=== PATIENT | female | born 1995 | race Caucasian/White ===

== ENCOUNTER 2018-06-26 15:16 | Emergency (ER) | payer SELFPAY | END 2018-06-26 16:56 | disposition home or self-care (01) | LOC: ERS 15:16 | DX: J02.9 Acute pharyngitis, unspecified (principal); E66.9 Obesity, unspecified; J45.909 Unspecified asthma, uncomplicated; F17.210 Nicotine dependence, cigarettes, uncomplicated | CPT/HCPCS: 87081; 87430; 99283 ==

== ENCOUNTER 2019-05-22 10:06 | Emergency (ER) | payer SELFPAY ==
--- NOTE | 2019-05-22 10:41 | RAD ---
EXAM: Chest 2 views: HISTORY: Cough COMPARISON: 04/20/2016 FINDINGS: There is a normal-sized cardiomediastinal silhouette. There is no evidence of consolidation, mass, or pleural effusion. The bones are unremarkable. IMPRESSION: No evidence of acute cardiopulmonary disease
[2019-05-22] MEDS ORDERED: Dexamethasone 10 MG/ML VIAL ONE (12:04)
== END 2019-05-22 12:20 | disposition home or self-care (01) ==
LOC: ERS 10:06
DX: J20.9 Acute bronchitis, unspecified (principal); J45.909 Unspecified asthma, uncomplicated; I10 Essential (primary) hypertension; E66.9 Obesity, unspecified; F17.210 Nicotine dependence, cigarettes, uncomplicated
CPT/HCPCS: 71046; 87804; 94644; 96372; J1100; J7620

== ENCOUNTER 2020-03-03 07:09 | Emergency (ER) | payer SELFPAY ==
--- NOTE | 2020-03-03 08:04 | RAD ---
Radiograph right fifth toe 3 views: 03/03/2020 7:33 AM HISTORY: 24-year-old female status post acute blunt trauma to the pinky toe FINDINGS: Transversely oriented acute fracture at proximal metaphysis of fifth proximal phalanx, with mild dors al and mild lateral angulation of distal fragment. Mild displacement. No dislocation. IMPRESSION: Acute, traumatic, mildly displaced fracture at base of proximal phalanx of right fifth toe.
== END 2020-03-03 08:02 | disposition home or self-care (01) ==
LOC: ERS 07:09
DX: S92.511A Displaced fracture of proximal phalanx of right lesser toe(s), initial encounter for closed fracture (principal); W23.0XXA Caught, crushed, jammed, or pinched between moving objects, initial encounter

== ENCOUNTER 2020-10-01 09:30 | Emergency (ER) | payer SELFPAY | END 2020-10-01 10:17 | disposition home or self-care (01) | LOC: ERS 09:30 | DX: R05 Cough (principal); R07.0 Pain in throat; Z20.822 Contact with and (suspected) exposure to COVID-19; K76.0 Fatty (change of) liver, not elsewhere classified; E66.9 Obesity, unspecified; E28.2 Polycystic ovarian syndrome; J45.909 Unspecified asthma, uncomplicated; F17.290 Nicotine dependence, other tobacco product, uncomplicated | CPT/HCPCS: 99281 ==

== ENCOUNTER 2021-03-09 09:40 | Emergency (ER) | payer OTHER | END 2021-03-09 11:24 | disposition home or self-care (01) | LOC: ERS 09:40 | DX: R19.7 Diarrhea, unspecified (principal); E66.9 Obesity, unspecified; E28.2 Polycystic ovarian syndrome; J45.909 Unspecified asthma, uncomplicated; F17.290 Nicotine dependence, other tobacco product, uncomplicated | CPT/HCPCS: 99283 ==

== ENCOUNTER 2021-04-22 14:47 | Emergency (ER) | payer OTHER, SELFPAY | END 2021-04-22 17:05 | disposition home or self-care (01) | LOC: ERS 14:47 | DX: J34.0 Abscess, furuncle and carbuncle of nose (principal); J45.909 Unspecified asthma, uncomplicated; F17.290 Nicotine dependence, other tobacco product, uncomplicated | CPT/HCPCS: 99283 ==

== ENCOUNTER 2021-09-01 09:25 | Emergency (ER) | payer SELFPAY ==
[2021-09-01 10:50] LABS: Bilirubin Negative (Negative); Blood, Urine Negative (Negative); Clarity Clear (Clear); Glucose, Urine (Dipstick) Normal (Negative); Ketone, Urine Negative (Negative); Leukocyte Negative Leu/uL (Negative); Nitrite Negative (Negative); Protein, Urine (Dipstick) Negative (Neg-Trace); Specific Gravity, Urine 1.017 (1.002-1.036); Urobilinogen Normal mg/dL (Less than 2); pH, Urine 6.5 (5.0-9.0)
[2021-09-01 10:56] LABS: Pregnancy Test - Urine (BHCG) Negative (Negative); Pregu Control Background? CLEAR/WHITE (CLR/WHITE); Pregu Control Bar Appear? YES (CONTROL BAR); Specific Gravity 1.017 (1.002-1.036)
[2021-09-01 21:51] LABS: Chlamydia by PCR Not Detected (NotDetected); GC by PCR Not Detected (NotDetected)
== END 2021-09-01 12:34 | disposition home or self-care (01) ==
LOC: ERS 09:25
DX: N76.5 Ulceration of vagina (principal); K64.4 Residual hemorrhoidal skin tags; E66.9 Obesity, unspecified; F17.290 Nicotine dependence, other tobacco product, uncomplicated
CPT/HCPCS: 81003; 81025; 87255; 87480; 87491; 87510; 87591; 87660; 99283

== ENCOUNTER 2021-09-17 09:07 | Emergency (ER) | payer SELFPAY | END 2021-09-17 10:29 | disposition home or self-care (01) | LOC: ERS 09:07 | DX: J06.9 Acute upper respiratory infection, unspecified (principal); E66.9 Obesity, unspecified; F17.290 Nicotine dependence, other tobacco product, uncomplicated | CPT/HCPCS: 99283 ==

== ENCOUNTER 2022-05-24 18:59 | Emergency (ER) | payer SELFPAY | END 2022-05-24 21:10 | disposition home or self-care (01) | LOC: ERS 18:59 | DX: R50.9 Fever, unspecified (principal); J02.9 Acute pharyngitis, unspecified; E66.9 Obesity, unspecified; Z87.891 Personal history of nicotine dependence; Z20.822 Contact with and (suspected) exposure to COVID-19 | CPT/HCPCS: 87804; 99283; U0003; U0005 ==